=== PATIENT | male | born 1955 | race Caucasian/White ===

== ENCOUNTER 2023-11-04 06:45 | Day surgery (SDC) | payer BC, OTHER ==
[2023-10-31 11:54] LABS: Absolute Eosinophils 0.1 K/uL (0-0.5); Absolute Lymphocytes (CBC) 1.1 K/uL (0.7-4.9); Absolute Monocytes 0.6 K/uL (0.1-1.3); Absolute Neutrophil 4.9 K/uL (1.8-8.0); Basophils % 0.3 % (0-1.3); Eosinophils % 0.9 % (0-4.4); Hematocrit 45.5 % (39.6-49.0); Hemoglobin 14.8 g/dL (13.6-17.9); Lymphocytes % 16.5 % (15.3-44.8); MCH 29.8 pg (27.0-35.0); MCHC 32.6 g/dL (32.0-36.0); MCV 91.6 fL (80-100); MPV 8.9 fL (7.6-11.3); Monocytes % 8.5 % (3.3-12.3); Neutrophils % 73.8 % (41.7-73.7); Platelets 151 thou/uL (152-406); RBC Red Blood Cell Count 4.96 M/uL (4.33-5.43); Red Cell Distribution Width 13.7 % (12.1-15.2)
--- NOTE | 2023-11-01 14:18 | EKG ---
Test Date: 2023-10-31 Test Time: 11:19:52 [employer] Supervisor: PREO MEASUREMENT RESULTS: Intervals: Rate: 51 CT: 150 QRSD: 104 QT: 454 QTc: 418 [place]: P: 26 CT: 150 QRS: 44 T: 26 INTERPRETIVE STATEMENTS: Sinus bradycardia Incomplete right bundle branch block Borderline ECG No previous ECG available for comparison Electronically Signed On 11-01-23 14:12:59 CDT by Delroy Fisher
[2023-11-04] MEDS ORDERED: Ringers Lactate 1,000 ML IV ONE (07:03)
[2023-11-04] MEDS: OXYMETAZOLINE HCL 0.05% 15ML NAS ONE (07:07)
[2023-11-04] MEDS ORDERED: ONDANSETRON 4 MG/2 ML VIAL ONE (07:46)
[2023-11-04] MEDS ORDERED: MIDAZOLAM HCL 2 MG/2 ML INJ ONE (07:46)
[2023-11-04] MEDS ORDERED: propofoL 200 MG/20 ML VIAL IV ONE (07:46)
[2023-11-04] MEDS ORDERED: FENTANYL CITR 100 MCG/2 ML ONE (07:46)
[2023-11-04] MEDS ORDERED: LIDOCAINE 1% MPF 5 ML VIAL ONE (07:46)
[2023-11-04] MEDS ORDERED: OFLOXACIN OPH 0.3%-5 ML BTL ONE (07:59)
[2023-11-04] MEDS ORDERED: dexAMETHasone 10 MG/ML VIAL ONE (08:15)
[2023-11-04] MEDS ORDERED: GLYCOPYRROLATE 0.2 MG/ML SYR ONE (08:19)
[2023-11-04] MEDS: HYDRALAZINE HCL 20 MG/ML VIAL ONE (09:51)
--- NOTE | 2023-11-04 10:21 | P.OP ---
Ammonium Sulfate Operator: NONE,NONE Preoperative diagnosis: bilateral mixed hearing loss, chronic eustachian tube salpingitis Postoperative diagnosis: same Primary procedure: nasal pharyngostomy with bilateral eustachian tube dilation Secondary procedure: bilateral tympanostomy tube placement Anesthesia: general Estimated blood loss: less than 5ml Specimen: none Findings: L serous middle ear fluid and tympanic atrophy Complications: None Implants: tiny T tubes Fluids & blood products: see anesthesia record Condition: Good
[2023-11-04 10:25] VITALS: O2SAT 97
[2023-11-04 12:04] VITALS: TEMP 96.5
[2023-11-04 12:40] VITALS: BP 138/60
== END 2023-11-04 11:30 | disposition home or self-care (01) ==
LOC: OR 06:45
PROVIDERS: ATTEND Otolaryngology
PROC: 097G8ZZ Dilation of Left Eustachian Tube, Via Natural or Artificial Opening Endoscopic (ICD-10-PCS; 2023-11-04)
PROC: 097F8ZZ Dilation of Right Eustachian Tube, Via Natural or Artificial Opening Endoscopic (ICD-10-PCS; 2023-11-04)
PROC: 099680Z Drainage of Left Middle Ear with Drainage Device, Via Natural or Artificial Opening Endoscopic (ICD-10-PCS; principal; 2023-11-04 08:00)
PROC: 099580Z Drainage of Right Middle Ear with Drainage Device, Via Natural or Artificial Opening Endoscopic (ICD-10-PCS; 2023-11-04 08:00)
DX: H68.023 Chronic Eustachian salpingitis, bilateral (principal); H90.6 Mixed conductive and sensorineural hearing loss, bilateral
CPT/HCPCS: 93005; 85025; 80048; 36415; 69436; 69706; J0360; J2704; J2001; J2250; J3010; J1100; J2405; J7120